=== PATIENT | female | born 1990 | race Two or more races ===

== ENCOUNTER 2024-02-05 10:56 | Emergency (ER) | payer MEDICAID, SELFPAY ==
--- NOTE | 2024-02-05 11:34 | XR_ITS ---
Examination: Abdomen AP 2 views Technique: AP portable supine abdomen, 2 views Exam date and time: February 05, 2024 1204 hours INDICATIONS: Unknown position gastrostomy tube today FINDINGS: Contrast opacifies the gastrostomy tube stomach and duodenum No abnormal extravasation of contrast noted IMPRESSION: Satisfactory position gastrostomy tube tip in the stomach
--- NOTE | 2024-02-05 11:35 | PD.EDADULT ---
ED General RME/HPI General Chief complaint: Abdominal Pain Stated complaint: G-TUBE LEAKING Time Seen by Provider: 02/05/24 11:02 Arrival date/time: 02/05/24 10:56 CC: G-tube failure HPI patient's family states that the G-tube has been leaking for the last several days it has been in for approximately 4 months. Patient is severely handicapped, requiring PEG tube feeds they deny fever or any other symptoms. Patient is awake Related Data Home Medications ?Medication ?Instructions ?Recorded ?Confirmed albuterol sulfate 2.5 mg/3 mL 2.5 mg HHN Q4HR PRN SHORTNESS OF 02/22/16 02/16/20 (0.083 %) solution for nebulization BREATH OR WHEEZE #0 ea budesonide 0.5 mg/2 mL suspension 0.5 mg HHN Q12HR #0 neb 02/22/16 02/16/20 for nebulization (Pulmicort) montelukast 10 mg tablet 10 mg PO QDAY #0 tabs 02/22/16 02/16/20 (Singulair) valproic acid (as sodium salt) 250 3 tsp PO TID ##0 02/22/16 02/16/20 mg/5 mL oral solution (valproic acid) lacosamide 100 mg tablet (Vimpat) 150 mg PO BID #0 tabs 02/04/17 02/16/20 levetiracetam 500 mg tablet 1,500 mg PO BID #0 tabs 02/04/17 02/16/20 (Keppra) lactulose 10 gram/15 mL oral 20 g PO BID 02/16/20 02/16/20 solution Previous Rx's ?Medication ?Instructions ?Recorded ondansetron HCl 4 mg tablet 4 mg feeding tube QID PRN nausea 04/12/18 (Zofran) and vomiting #14 tabs promethazine 25 mg tablet 25 mg feeding tube Q6H PRN nausea 04/12/18 and vomiting #10 tabs bacitracin 500 unit/gram topical 1 applic topical BID #30 grams 12/30/20 ointment doxycycline hyclate 100 mg capsule 100 mg PO BID #10 caps 12/30/20 Allergies Allergy/AdvReac Type Severity Reaction Status Date / Time brompheniramine Allergy Severe Difficulty Verified 10/03/23 10:43 [From Dimetapp Breathing (brompheniramine-PPA)] dextromethorphan Allergy Severe Difficulty Verified 10/03/23 10:43 Breathing guaifenesin Allergy Severe Difficulty Verified 10/03/23 10:43 Breathing hydrocodone bit Allergy Severe Dizziness Verified 10/03/23 10:43 latex Allergy Severe Dizziness Verified 10/03/23 10:43 metoclopramide [From Reglan] Allergy Severe Dizziness Verified 02/05/24 10:58 Penicillins Allergy Severe DIFF Verified 10/03/23 10:43 BREATHING phenylpropanolamine Allergy Severe Difficulty Verified 10/03/23 10:43 [From Dimetapp Breathing (brompheniramine-PPA)] pseudoephedrine Allergy Severe Difficulty Verified 10/03/23 10:43 Breathing Review of Systems Review of Systems ROS Unobtainable: unobtainable due to mental status Past Medical History Past Medical History NEUROLOGIC: Positive Seizures and Epilepsy; Negative Cerebrovascular Accident CARDIAC: Negative Cardiac Disorders, Myocardial Infarction, Hypercholesterolemia, Congestive Heart Failure or Hypertension RESPIRATORY: Positive Asthma and Pneumonia; Negative Chronic Obstructive Pulmonary Disease (COPD) GASTROINTESTINAL: Positive Gastroesophageal Reflux Disease; Negative Gastrointestinal Bleed or Hemorrhoids GENITOURINARY: Negative Genitourinary Disorders or Renal Disease ENDOCRINE: Negative Diabetes Mellitus Type 1, Diabetes Mellitus Type 2, Hyperthyroidism or Hypothyroidism HEMATOLOGIC: Negative Anemia or Sickle Cell Disease OTHER HISTORY: Positive Developmental Delay; Negative Autoimmune Disease or Cancer Family History FAMILY HISTORY: Positive Family Respiratory Disorders and Family Cardiac Disorders; Negative Family Psychiatric Problems, Family Gastrointestinal Problems, Family Cancer, Family Surgery or Family Anesthesia Reaction Surgical History SURGICAL: Positive Abdominal Surgery (g-tube placement) Social History SMOKING STATUS: Never smoker SECOND HAND EXPOSURE: No SUBSTANCE USE: does not use ED Exam Narrative Physical exam: [General: Not in any acute distress Head normocephalic HEENT: Within acceptable limits Neck is supple nontender Chest equal chest rise nontender to palpation Respiratory: Clear to auscultation no wheezes crackles or rubs CV: Rate rhythm is regular no murmurs rubs or clicks Abdomen is distended secondary to body habitus soft nontender no masses positive bowel sounds all 4 quadrants Back: No CVA tenderness no spinous process tenderness from cervical spine thoracic and lumbar spine Skin: G-tube stoma in the center upper abdomen clean dry and intact. Intact no petechiae rash induration ulceration or crepitus Extremities: Moving all extremity against resistance cap refill less than 2 seconds neurosensory intact Neuro: Awake baseline nonverbal Course Quality Measures none Orders Category Date Time Status XR abdomen 1V Stat Exams 02/05/24 11:34 Completed Procedures -ED Procedure Comment G-tube replacement old G-tube removed after difficulty and deflating the balloon due to a sticky valve. However all G-tube was removed without complication. New G-tube inserted after stomal site was cleaned, no resistance or complication gastric contents retracted. Patient tolerated the procedure well. [facility] Patient data External records reviewed:: [facility] previous records Clinical information provided by:: family and parent Social determinants that could affect healthcare access:: mental health Patient has the following chronic illnesses:: Developmental delay How is presenting disease/condition affected by chronic disease/condition?: uneffected by Evaluation data The following diagnostics were reviewed and interpreted by me:: radiology exam(s) Lab and/or radiology exams considered but not ordered:: X-ray shows a sufficient physician of the G-tube. Interpretation Summary: Successful replacement of G-tube Medications Medications considered but not ordered:: None Medication administrations:: None Consultations Consultation(s) initiated? (list below): No Diagnosis Differential Diagnosis ED Complaint MDM: G-tube failure stoma cellulitis stoma abscess Most likely diagnosis given after review of the tests above:: G-tube replacement Admission Indicated Admission indicated?: not indicated Explain why admission is indicated or not indicated:: Stable for outpatient follow-up Admission Request Was there a request for admission?: No Disposition Plan Disposition Plan: Discharge Discharge Attestation Discharge Attestation: The patient and all family members were given an opportunity to ask questions and understood the discharge instructions. Discharge instructions specifically effects, indications for sooner follow up or return to the emergency department, and the expected course of current diagnosis. Patient condition: Stable Medical Decision Making Differential Diagnosis Differential Diagnosis: G-tube failure stoma cellulitis stoma abscess Discharge Plan Plan Patient Disposition: HOME (Self Care) Patient condition on transfer: Stable Prescriptions/Referrals Prescriptions/Med Rec: No Action valproic acid (as sodium salt) [valproic acid] 250 MG/5 ML solution 3 tsp PO TID Qty: 0 montelukast [Singulair] 10 MG tablet 10 mg PO QDAY Qty: 0 albuterol sulfate 2.5 MG/3 ML solution for nebulization 2.5 mg HHN Q4HR PRN (Reason: SHORTNESS OF BREATH OR WHEEZE) Qty: 0 budesonide [Pulmicort] 0.5 MG/2 ML suspension for nebulization 0.5 mg HHN Q12HR Qty: 0 levetiracetam [Keppra] 500 MG tablet 1,500 mg PO BID Qty: 0 Vimpat 100 MG tablet 150 mg PO BID Qty: 0 promethazine 25 mg tablet 25 mg Feeding Tube Q6H PRN (Reason: nausea and vomiting) Qty: 10 0RF ondansetron HCl [Zofran] 4 mg tablet 4 mg Feeding Tube QID PRN (Reason: nausea and vomiting) Qty: 14 0RF bacitracin 500 unit/gram ointment 1 applic topical BID Qty: 30 4RF doxycycline hyclate 100 mg capsule 100 mg PO BID Qty: 10 0RF lactulose 10 gram/15 mL Solution 20 g PO BID Referrals: Dev Hernández MD [Primary Care Provider] - In 1 week Problem List Clinical Impression: Impaired oral gastric feeding tube Patient/Caregiver Discharge Instructions Other Activity Instructions:: Keep the site clean and dry Print Language: Maori Stand Alone Forms: Leandra Award Info., Patient Portal Info Letter PA/FAST FOOD RESTAURANT MANAGER Supervising Physician PA/FAST FOOD RESTAURANT MANAGER Supervising Physician: Lauro Hernandez ENP
== END 2024-02-05 12:39 | disposition home or self-care (01) ==
PROVIDERS: Emergency Provider Emergency Medicine; PCP Family Medicine
DX: K94.23 Gastrostomy malfunction (principal)
CPT/HCPCS: 43762; 74018; 99283; Q9963

== ENCOUNTER 2024-06-03 00:34 | Emergency (ER) | payer MEDICAID, SELFPAY ==
--- NOTE | 2024-06-03 00:39 | XR_ITS ---
Examination: Abdomen AP single view Technique: AP portable supine abdomen, single view Exam date and time: June 03, 2024 0055 hours INDICATIONS: Unknown position gastrostomy tube FINDINGS: Gastrostomy tube overlies the body the stomach No free air Nonobstructive bowel gas pattern IMPRESSION: Gastrostomy tube overlies the body the stomach
[2024-06-03 00:46] VITALS: BP 121/67; PULSE 102; PULSE 99; RESP 19; TEMP 36.7; O2SAT 99; BMI 21.4
--- NOTE | 2024-06-03 01:13 | PD.EDABDPN ---
ED Abdominal Pain RME/HPI General Chief Complaint: Abdominal Pain Stated complaint: G-TUBE REMOVED Time seen by provider: 06/03/24 00:38 Arrival date/time: 06/03/24 00:34 RME / HPI RME / HPI narrative: This section includes all my notes and documentations, including HPI, PE, and ED course.? Louie Awan MD HPI: 34 year old female here with dislodged G-tube. Mom brought new G-tube for replacement. No other complaints. ROS: All negative except as documented in HPI. Physical Exam: General:? Alert.? No acute distress when remaining still. Eyes:? Conjunctivae and lids clear.?? ENT:? No nasal congestion.? Neck:? Supple.?? Lungs:? No respiratory distress.? Abdomen:? Soft and nontender.? Normal bowel sounds.? No distension.? No rebound or guarding.?? Back:? No CVA tenderness.?? Skin:? Warm and dry.?? Neuro:? Alert with GCS 15. I reviewed EMS notes. New G-tube successfully inserted with no complications. My interpretation of the KUB is no acute findings. Based on my best medical judgment, made decision no further evaluation or treatment indicated at this time.? Mom understands and agrees to the discharge instructions customized and printed, see below. Discharge Instructions from Dr. Awan printed for you: 1. Fortunately, we were able to G-tube successfully thanks to your help. 2. Continue current care. 3. Seek immediate medical care with any concerns. Louie Awan MD Related Data Home Medications ?Medication ?Instructions ?Recorded ?Confirmed albuterol sulfate 2.5 mg/3 mL 2.5 mg HHN Q4HR PRN SHORTNESS OF 02/22/16 02/16/20 (0.083 %) solution for nebulization BREATH OR WHEEZE #0 ea budesonide 0.5 mg/2 mL suspension 0.5 mg HHN Q12HR #0 neb 02/22/16 02/16/20 for nebulization (Pulmicort) montelukast 10 mg tablet 10 mg PO QDAY #0 tabs 02/22/16 02/16/20 (Singulair) valproic acid (as sodium salt) 250 3 tsp PO TID ##0 02/22/16 02/16/20 mg/5 mL oral solution (valproic acid) lacosamide 100 mg tablet (Vimpat) 150 mg PO BID #0 tabs 02/04/17 02/16/20 levetiracetam 500 mg tablet 1,500 mg PO BID #0 tabs 02/04/17 02/16/20 (Keppra) lactulose 10 gram/15 mL oral 20 g PO BID 02/16/20 02/16/20 solution Previous Rx's ?Medication ?Instructions ?Recorded ondansetron HCl 4 mg tablet 4 mg feeding tube QID PRN nausea 04/12/18 (Zofran) and vomiting #14 tabs promethazine 25 mg tablet 25 mg feeding tube Q6H PRN nausea 04/12/18 and vomiting #10 tabs bacitracin 500 unit/gram topical 1 applic topical BID #30 grams 12/30/20 ointment doxycycline hyclate 100 mg capsule 100 mg PO BID #10 caps 12/30/20 Allergies Allergy/AdvReac Type Severity Reaction Status Date / Time brompheniramine (From Allergy Severe Difficulty Verified 10/03/23 10:43 Dimetapp Breathing (brompheniramine-PPA)) dextromethorphan Allergy Severe Difficulty Verified 10/03/23 10:43 Breathing guaifenesin Allergy Severe Difficulty Verified 10/03/23 10:43 Breathing hydrocodone bit Allergy Severe Dizziness Verified 10/03/23 10:43 latex Allergy Severe Dizziness Verified 10/03/23 10:43 metoclopramide (From Reglan) Allergy Severe Dizziness Verified 02/05/24 10:58 Penicillins Allergy Severe DIFF Verified 10/03/23 10:43 BREATHING phenylpropanolamine (From Allergy Severe Difficulty Verified 10/03/23 10:43 Dimetapp Breathing (brompheniramine-PPA)) pseudoephedrine Allergy Severe Difficulty Verified 10/03/23 10:43 Breathing Course Quality Measures none Orders Category Date Time Status KUB [XR abdomen 1V] Stat Exams 06/03/24 00:39 Completed Vital Signs Vital signs: Vital Signs Temperature 98.1 F 06/03/24 00:46 Pulse Rate 99 06/03/24 00:46 Respiratory Rate 19 06/03/24 00:46 Blood Pressure 121/67 06/03/24 00:46 Pulse Oximetry (%) 99 06/03/24 00:46 Oxygen Delivery Method Room Air 06/03/24 00:46 Abdominal Pain MDM Patient data External records reviewed:: [facility] previous records and EMS form Clinical information provided by:: EMS and parent Social determinants that could affect healthcare access:: other (specify) (Developmental delay) Patient has the following chronic illnesses:: Developmental delay, G-tube, Seizure How is presenting disease/condition affected by chronic disease/condition?: exacerbated by Evaluation data The following diagnostics were reviewed and interpreted by me:: radiology exam(s) Lab and/or radiology exams considered but not ordered:: none Interpretation Summary: My interpretation of the KUB is no acute findings. Medications / Prescriptions Medications or Prescriptions considered but not ordered:: none Medication administrations:: none Consultations Consultation(s) initiated? (list below): No Diagnosis Differential diagnosis abdominal pain: other (Dislodged G-tube) Most likely diagnosis given after review of the tests above:: Dislodged G-tube Admission Indicated Admission indicated?: not indicated Explain why admission is indicated or not indicated:: Admission not indicated after successful new G-tube insertion. Admission Request Was there a request for admission?: No Disposition Plan Disposition Plan: Discharge Discharge Attestation Discharge Attestation: The patient and all family members were given an opportunity to ask questions and understood the discharge instructions. Discharge instructions specifically effects, indications for sooner follow up or return to the emergency department, and the expected course of current diagnosis. Patient condition: Stable Discharge Plan Plan Patient Disposition: HOME (Self Care) Prescriptions/Referrals Prescriptions/Med Rec: No Action valproic acid (as sodium salt) [valproic acid] 250 MG/5 ML solution 3 tsp PO TID Qty: 0 montelukast [Singulair] 10 MG tablet 10 mg PO QDAY Qty: 0 albuterol sulfate 2.5 MG/3 ML solution for nebulization 2.5 mg HHN Q4HR PRN (Reason: SHORTNESS OF BREATH OR WHEEZE) Qty: 0 budesonide [Pulmicort] 0.5 MG/2 ML suspension for nebulization 0.5 mg HHN Q12HR Qty: 0 levetiracetam [Keppra] 500 MG tablet 1,500 mg PO BID Qty: 0 Vimpat 100 MG tablet 150 mg PO BID Qty: 0 promethazine 25 mg tablet 25 mg Feeding Tube Q6H PRN (Reason: nausea and vomiting) Qty: 10 0RF ondansetron HCl [Zofran] 4 mg tablet 4 mg Feeding Tube QID PRN (Reason: nausea and vomiting) Qty: 14 0RF bacitracin 500 unit/gram ointment 1 applic topical BID Qty: 30 4RF doxycycline hyclate 100 mg capsule 100 mg PO BID Qty: 10 0RF lactulose 10 gram/15 mL Solution 20 g PO BID Referrals: Dev Hernández MD [Primary Care Provider] - In 1 week Problem List Clinical Impression: Gastrostomy tube dysfunction Patient/Caregiver Discharge Instructions Discharge Activity: activity as tolerated Education Materials: ED Feeding Tube Replacement Additional Instructions: Discharge Instructions from Dr. Awan printed for you: 1. Fortunately, we were able to G-tube successfully thanks to your help. 2. Continue current care. 3. Seek immediate medical care with any concerns. Print Language: Wolof Stand Alone Forms: Leandra Award Info., Patient Portal Info Letter
== END 2024-06-03 01:27 | disposition home or self-care (01) ==
PROVIDERS: Emergency Provider Emergency Medicine; PCP Family Medicine
DX: K94.23 Gastrostomy malfunction (principal)
CPT/HCPCS: 43762; 74018; 99283

== ENCOUNTER 2024-09-02 10:43 | Emergency (ER) | payer MEDICAID, SELFPAY ==
[2024-09-02 11:00] VITALS: BP 115/77; PULSE 96; RESP 18; TEMP 37.2; O2SAT 98
--- NOTE | 2024-09-02 11:05 | PD.EDADULT ---
ED General RME/HPI General Chief complaint: General Adult/Misc Complain Stated complaint: GT LEAKING Time Seen by Provider: 09/02/24 10:52 Source: patient Arrival date/time: 09/02/24 10:43 34-year-old female with no known medical history presents to the emergency room with a chief complaint of her G-tube leaking x 2 days Mode of arrival: ambulatory Limitations: no limitations Related Data Home Medications ?Medication ?Instructions ?Recorded ?Confirmed albuterol sulfate 2.5 mg/3 mL 2.5 mg HHN Q4HR PRN SHORTNESS OF 02/22/16 02/16/20 (0.083 %) solution for nebulization BREATH OR WHEEZE #0 ea budesonide 0.5 mg/2 mL suspension 0.5 mg HHN Q12HR #0 neb 02/22/16 02/16/20 for nebulization (Pulmicort) montelukast 10 mg tablet 10 mg PO QDAY #0 tabs 02/22/16 02/16/20 (Singulair) valproic acid (as sodium salt) 250 3 tsp PO TID ##0 02/22/16 02/16/20 mg/5 mL oral solution (valproic acid) lacosamide 100 mg tablet (Vimpat) 150 mg PO BID #0 tabs 02/04/17 02/16/20 levetiracetam 500 mg tablet 1,500 mg PO BID #0 tabs 02/04/17 02/16/20 (Keppra) lactulose 10 gram/15 mL oral 20 g PO BID 02/16/20 02/16/20 solution Previous Rx's ?Medication ?Instructions ?Recorded ondansetron HCl 4 mg tablet 4 mg feeding tube QID PRN nausea 04/12/18 (Zofran) and vomiting #14 tabs promethazine 25 mg tablet 25 mg feeding tube Q6H PRN nausea 04/12/18 and vomiting #10 tabs bacitracin 500 unit/gram topical 1 applic topical BID #30 grams 12/30/20 ointment doxycycline hyclate 100 mg capsule 100 mg PO BID #10 caps 12/30/20 Allergies Allergy/AdvReac Type Severity Reaction Status Date / Time brompheniramine (From Allergy Severe Difficulty Verified 09/02/24 10:46 Dimetapp Breathing (brompheniramine-PPA)) dextromethorphan Allergy Severe Difficulty Verified 09/02/24 10:46 Breathing guaifenesin Allergy Severe Difficulty Verified 09/02/24 10:46 Breathing hydrocodone bit Allergy Severe Dizziness Verified 09/02/24 10:46 latex Allergy Severe Dizziness Verified 09/02/24 10:46 metoclopramide (From Reglan) Allergy Severe Dizziness Verified 09/02/24 10:46 Penicillins Allergy Severe DIFF Verified 09/02/24 10:46 BREATHING phenylpropanolamine (From Allergy Severe Difficulty Verified 09/02/24 10:46 Dimetapp Breathing (brompheniramine-PPA)) pseudoephedrine Allergy Severe Difficulty Verified 09/02/24 10:46 Breathing Review of Systems Review of Systems Systems Reviewed: All systems reviewed, normal except as documented Constitutional Constitutional: Reports system reviewed and no additional complaints, except as documented, Denies fatigue, Denies fever(s), Denies headache(s) and Denies weakness Eyes Eyes: Reports system reviewed and no additional complaints, except as documented, Denies blurry vision and Denies change in vision ENT Ears, Nose, Mouth, and Throat: Reports system reviewed and no additional complaints, except as documented, Denies otalgia, Denies headache(s), Denies nasal congestion, Denies throat swelling and Denies vertigo Cardiovascular Cardiovascular: Reports system reviewed and no additional complaints, except as documented, Denies chest pain, Denies dyspnea and Denies dyspnea on exertion Respiratory Respiratory: Reports system reviewed and no additional complaints, except as documented, Denies chest congestion, Denies cough, Denies dyspnea, Denies dyspnea on exertion and Denies wheezing Gastrointestinal Gastrointestinal: Reports system reviewed and no additional complaints, except as documented, Denies abdominal pain, Denies cramping, Denies nausea and Denies vomiting Genitourinary Genitourinary: Reports system reviewed and no additional complaints, except as documented Musculoskeletal Musculoskeletal: Reports system reviewed and no additional complaints, except as documented and Denies back pain Integumentary/Breasts Skin/Breast: Reports system reviewed and no additional complaints, except as documented and Denies wounds Neurologic Neurologic: Reports system reviewed and no additional complaints, except as documented, Denies confusion, Denies headache(s), Denies lack of coordination, Denies vertigo and Denies weakness Psychiatric Psychiatric: Reports system reviewed and no additional complaints, except as documented, Denies anxiety, Denies confusion, Denies depression, Denies paranoia, Denies suicidal ideation and Denies tactile hallucinations Endocrine Endocrine: Reports system reviewed and no additional complaints, except as documented and Denies fatigue Hematologic/Lymphatic Hematologic/Lymphatic: Reports system reviewed and no additional complaints, except as documented and Denies lymphadenopathy Allergic/Immunologic Allergic/Immunologic: Reports system reviewed and no additional complaints, except as documented, Denies throat swelling, Denies urticaria and Denies wheezing Past Medical History Past Medical History NEUROLOGIC: Positive Seizures and Epilepsy; Negative Cerebrovascular Accident CARDIAC: Negative Cardiac Disorders, Myocardial Infarction, Hypercholesterolemia, Congestive Heart Failure or Hypertension RESPIRATORY: Positive Asthma and Pneumonia; Negative Chronic Obstructive Pulmonary Disease (COPD) GASTROINTESTINAL: Positive Gastroesophageal Reflux Disease; Negative Gastrointestinal Bleed or Hemorrhoids GENITOURINARY: Negative Genitourinary Disorders or Renal Disease ENDOCRINE: Negative Diabetes Mellitus Type 1, Diabetes Mellitus Type 2, Hyperthyroidism or Hypothyroidism HEMATOLOGIC: Negative Anemia or Sickle Cell Disease OTHER HISTORY: Positive Developmental Delay; Negative Autoimmune Disease or Cancer Family History FAMILY HISTORY: Positive Family Respiratory Disorders and Family Cardiac Disorders; Negative Family Psychiatric Problems, Family Gastrointestinal Problems, Family Cancer, Family Surgery or Family Anesthesia Reaction Surgical History SURGICAL: Positive Abdominal Surgery Social History SMOKING STATUS: Never smoker SECOND HAND EXPOSURE: No SUBSTANCE USE: does not use ED Exam General Limitations: Present no limitations General appearance: Present alert and in no apparent distress Head Head exam: Present atraumatic Eye Eye exam: Present normal appearance, PERRL and EOMI ENT ENT exam: Present normal exam, normal oropharynx and mucous membranes moist Neck Neck exam: Present normal inspection, full ROM and trachea midline Chest Chest inspection: Present normal inspection and symmetric chest wall rise Respiratory Respiratory exam: Present normal lung sounds bilaterally Cardiovascular Cardiovascular exam: Present regular rate, normal rhythm and normal heart sounds Abdominal Exam Abdominal exam: Present soft and normal bowel sounds; Absent distention, tenderness, guarding, rebound or rigidity Extremities Exam Extremities exam: Present normal inspection and full ROM Back Exam Back exam: Present normal inspection and full ROM Neurological Exam Neurological exam: Present alert, oriented X3 and CN II-XII intact Psychiatric Psychiatric exam: Present normal affect and normal mood Skin Skin exam: Present warm, dry, intact and normal color Course Quality Measures none Orders Category Date Time Status XR abdomen 1V Stat Exams 09/02/24 11:22 Completed Vital Signs Vital signs: Vital Signs Temperature 98.9 F 09/02/24 11:00 Pulse Rate 96 07/21/25 11:00 Respiratory Rate 18 09/02/24 11:00 Blood Pressure 115/77 09/02/24 11:00 Pulse Oximetry (%) 98 09/02/24 11:00 Oxygen Delivery Method Room Air 09/02/24 11:00 Discharge Plan Plan Patient Disposition: HOME (Self Care) Discharge Disposition comment: Stable Prescriptions/Referrals Prescriptions/Med Rec: No Action valproic acid (as sodium salt) [valproic acid] 250 MG/5 ML solution 3 tsp PO TID Qty: 0 montelukast [Singulair] 10 MG tablet 10 mg PO QDAY Qty: 0 albuterol sulfate 2.5 MG/3 ML solution for nebulization 2.5 mg HHN Q4HR PRN (Reason: SHORTNESS OF BREATH OR WHEEZE) Qty: 0 budesonide [Pulmicort] 0.5 MG/2 ML suspension for nebulization 0.5 mg HHN Q12HR Qty: 0 levetiracetam [Keppra] 500 MG tablet 1,500 mg PO BID Qty: 0 Vimpat 100 MG tablet 150 mg PO BID Qty: 0 promethazine 25 mg tablet 25 mg Feeding Tube Q6H PRN (Reason: nausea and vomiting) Qty: 10 0RF ondansetron HCl [Zofran] 4 mg tablet 4 mg Feeding Tube QID PRN (Reason: nausea and vomiting) Qty: 14 0RF bacitracin 500 unit/gram ointment 1 applic topical BID Qty: 30 4RF doxycycline hyclate 100 mg capsule 100 mg PO BID Qty: 10 0RF lactulose 10 gram/15 mL Solution 20 g PO BID Referrals: No Primary/Family,Physician [Primary Care Provider] - In 1 week Problem List Clinical Impression: Gastrostomy tube dysfunction Patient/Caregiver Discharge Instructions Additional Instructions: Please follow-up with your primary care provider in the next 24 to 48 hours Your G-tube was replaced. For any evidence of worsening signs or symptoms return to the emergency room immediately Print Language: Guamanian Stand Alone Forms: Leandra Award Info., Patient Portal Info Letter PA/ELECTRIC KNIFE OPERATOR Supervising Physician PA/ELECTRIC KNIFE OPERATOR Supervising Physician: Dr. Josiah LOU Narrative MDM hospital course: 34-year-old female with a history of developmental delay presents to the emergency room with a chief complaint of her G-tube leaking x 2 days Patient is hemodynamically stable and in no apparent distress. The patient is afebrile not tachycardic not tachypneic. The patient has a history of developmentally delayed. According to both of her parents the patient is not in any pain or any any distress and the only reason they brought her in was due to the G-tube leaking. The father states that the last time that the G-tube was replaced was 3 months ago. I removed the G-tube and replaced with one that measures exactly the same. An x-ray was then done to verify placement and the placement within satisfactory position Patient was discharged and educated to follow-up with primary care provider in the next 24 to 48 hours and return to the emergency room for any evidence of worsening signs or symptoms Clinical Information Provided by parent Medical Records Reviewed [facility] Meds/Rx Considered, not Ordered None Labs/Rad/Tests considered, not Ordered None Chronic Illness/Social Conditions which may negatively complicate care or outcome(s)-explain: None or not applicable EKG EKG not done Lab Interpretation Labs: none Imaging Imaging interpretation: interpreted by nd Radiology reports / interpretation(s): Abdominal p-nmi-I-tube in satisfactory position Medication Administration(s) none Diagnosis Differential diagnosis: G-tube dysfunction/infected G-tube Differential dx and/or dx ruled out: Infected G-tube Most likely dx, and/or detailed dx discussion: G-tube dysfunction Dispositon Disposition: Discharge Home
--- NOTE | 2024-09-02 11:22 | XR_ITS ---
Examination: Abdomen AP single view Technique: AP portable supine abdomen, single view Exam date and time: September 02, 2024, 1155 hours INDICATIONS: Unknown position gastrostomy tube FINDINGS: There is opacification of gastrostomy tube, contrast in the stomach and small bowel No leak of contrast material noted IMPRESSION: Satisfactory position gastrostomy tube in the body the stomach
== END 2024-09-02 12:40 | disposition home or self-care (01) ==
PROVIDERS: Emergency Provider Nurse Practitioner Family
DX: K94.23 Gastrostomy malfunction (principal)
CPT/HCPCS: 74018; 99283

== ENCOUNTER 2024-11-04 00:07 | Emergency (ER) | payer MEDICAID, SELFPAY ==
[2024-11-04 00:24] VITALS: BP 119/67; PULSE 79; RESP 20; TEMP 36.7; O2SAT 97
--- NOTE | 2024-11-04 00:29 | ESOP_ITS ---
PROCEDURES: Procedure Date / Time 11/04/24 0029 Feeding Tube Replacement Informed consent obtained: obtained from surrogate decision maker and implied Time out done, and the following verified: correct patient, side and site, procedure, patient position and implants and/or equipment Type of tube: G-J Tube Insertion site prior to procedure: clean Tube used for reinsertion: Bard Citizen [place] Tube Size (F): 20 Balloon size (mL): 10 Verification of placement: auscultation and other (Aspiration of gastric contents) Tube secured by: tape/dressing Patient tolerated procedure: well and no complications EBL(ml): 0 Additional comments: Performed under supervision of Attending ED Physician Dr. Emperatriz Diaz MD Internal Medicine PGY-2 Disclaimer: This note was dictated by speech recognition. Minor errors in food and beverage associate may be present due to voice recognition software.
--- NOTE | 2024-11-04 00:30 | PD.EDADULT ---
ED General RME/HPI General Chief complaint: General Adult/Misc Complain Stated complaint: GT CAME OUT Time Seen by Provider: 11/04/24 00:13 Source: family Arrival date/time: 11/04/24 00:07 Mode of arrival: wheelchair RME / HPI RME / HPI narrative: Ms. Perkins is a 34-year-old female with past medical history of developmental delay, seizure disorder, status post PEG tube and asthma who presented to [facility] emergency department on 11/04/2024 with a chief complaint of PEG tube dislodgment. Patient's mother complained that earlier today when she was about to give her her night dose of medications she noticed that the PEG tube was dislodged and outside the orifice., No tenderness or redness noted around the site. No other complaints, vital stable. Related Data Home Medications ?Medication ?Instructions ?Recorded ?Confirmed albuterol sulfate 2.5 mg/3 mL 2.5 mg HHN Q4HR PRN SHORTNESS OF 02/22/16 02/16/20 (0.083 %) solution for nebulization BREATH OR WHEEZE #0 ea budesonide 0.5 mg/2 mL suspension 0.5 mg HHN Q12HR #0 neb 02/22/16 02/16/20 for nebulization (Pulmicort) montelukast 10 mg tablet 10 mg PO QDAY #0 tabs 02/22/16 02/16/20 (Singulair) valproic acid (as sodium salt) 250 3 tsp PO TID ##0 02/22/16 02/16/20 mg/5 mL oral solution (valproic acid) lacosamide 100 mg tablet (Vimpat) 150 mg PO BID #0 tabs 02/04/17 02/16/20 levetiracetam 500 mg tablet 1,500 mg PO BID #0 tabs 02/04/17 02/16/20 (Keppra) lactulose 10 gram/15 mL oral 20 g PO BID 02/16/20 02/16/20 solution Previous Rx's ?Medication ?Instructions ?Recorded ondansetron HCl 4 mg tablet 4 mg feeding tube QID PRN nausea 04/12/18 (Zofran) and vomiting #14 tabs promethazine 25 mg tablet 25 mg feeding tube Q6H PRN nausea 04/12/18 and vomiting #10 tabs bacitracin 500 unit/gram topical 1 applic topical BID #30 grams 12/30/20 ointment doxycycline hyclate 100 mg capsule 100 mg PO BID #10 caps 12/30/20 Allergies Allergy/AdvReac Type Severity Reaction Status Date / Time brompheniramine (From Allergy Severe Difficulty Verified 09/02/24 10:46 Dimetapp Breathing (brompheniramine-PPA)) dextromethorphan Allergy Severe Difficulty Verified 09/02/24 10:46 Breathing guaifenesin Allergy Severe Difficulty Verified 09/02/24 10:46 Breathing hydrocodone bit Allergy Severe Dizziness Verified 09/02/24 10:46 latex Allergy Severe Dizziness Verified 09/02/24 10:46 metoclopramide (From Reglan) Allergy Severe Dizziness Verified 09/02/24 10:46 Penicillins Allergy Severe DIFF Verified 09/02/24 10:46 BREATHING phenylpropanolamine (From Allergy Severe Difficulty Verified 09/02/24 10:46 Dimetapp Breathing (brompheniramine-PPA)) pseudoephedrine Allergy Severe Difficulty Verified 09/02/24 10:46 Breathing Review of Systems Review of Systems Systems Reviewed: All systems reviewed, normal except as documented Past Medical History Past Medical History NEUROLOGIC: Positive Seizures and Epilepsy; Negative Cerebrovascular Accident CARDIAC: Negative Cardiac Disorders, Myocardial Infarction, Hypercholesterolemia, Congestive Heart Failure or Hypertension RESPIRATORY: Positive Asthma; Negative Chronic Obstructive Pulmonary Disease (COPD) GASTROINTESTINAL: Positive Gastroesophageal Reflux Disease; Negative Gastrointestinal Bleed or Hemorrhoids GENITOURINARY: Negative Genitourinary Disorders or Renal Disease ENDOCRINE: Negative Diabetes Mellitus Type 1, Diabetes Mellitus Type 2, Hyperthyroidism or Hypothyroidism HEMATOLOGIC: Negative Anemia or Sickle Cell Disease OTHER HISTORY: Positive Developmental Delay; Negative Autoimmune Disease or Cancer Family History FAMILY HISTORY: Positive Family Respiratory Disorders and Family Cardiac Disorders; Negative Family Psychiatric Problems, Family Gastrointestinal Problems, Family Cancer, Family Surgery or Family Anesthesia Reaction Surgical History SURGICAL: Positive Abdominal Surgery Social History SMOKING STATUS: Never smoker SECOND HAND EXPOSURE: No SUBSTANCE USE: does not use ED Exam Narrative Physical exam: Physical Exam General: Awake and in no acute distress. Nonverbal. HEENT: Normocephalic, atraumatic, mucous membranes moist. Heart: Regular rate and rhythm, no murmurs. Lungs: Clear to auscultation with no wheezing or crackles. Abdomen: Soft, nondistended, nontender, positive bowel sounds. Old PEG tube within orifice, no tenderness redness noted around site.?No guarding or rebound tenderness. Neurologic: At baseline mentation per mother, no gross neurological deficit, and patient able to move all 4 extremities. Extremities: No edema. Skin: No rash or ecchymoses. Course Quality Measures none Vital Signs Vital signs: Vital Signs Temperature 98.0 F 11/04/24 00:24 Pulse Rate 79 11/04/24 00:24 Respiratory Rate 20 11/04/24 00:24 Blood Pressure 119/67 11/04/24 00:24 Pulse Oximetry (%) 97 11/04/24 00:24 Oxygen Delivery Method Room Air 11/04/24 00:24 PROCEDURES: Feeding Tube Replacement Type of Tube: G-J Tube Insertion Site Prior to Procedure: clean Tube Used for Reinsertion: Bard [place] Tube Size (F): 20 Balloon size (mL): 10 Verification of Placement: auscultation and other (Aspiration of gastric contents) Tube Secured by: tape/dressing Patient Tolerated Procedure: well and no complications Additional Comments: Procedure performed under supervision of ED physician Dr. Emperatriz Diaz MD Internal Medicine PGY-2 Discharge Plan Plan Patient Disposition: HOME (Self Care) Patient condition on transfer: Stable Prescriptions/Referrals Prescriptions/Med Rec: No Action valproic acid (as sodium salt) [valproic acid] 250 MG/5 ML solution 3 tsp PO TID Qty: 0 montelukast [Singulair] 10 MG tablet 10 mg PO QDAY Qty: 0 albuterol sulfate 2.5 MG/3 ML solution for nebulization 2.5 mg HHN Q4HR PRN (Reason: SHORTNESS OF BREATH OR WHEEZE) Qty: 0 budesonide [Pulmicort] 0.5 MG/2 ML suspension for nebulization 0.5 mg HHN Q12HR Qty: 0 levetiracetam [Keppra] 500 MG tablet 1,500 mg PO BID Qty: 0 Vimpat 100 MG tablet 150 mg PO BID Qty: 0 promethazine 25 mg tablet 25 mg Feeding Tube Q6H PRN (Reason: nausea and vomiting) Qty: 10 0RF ondansetron HCl [Zofran] 4 mg tablet 4 mg Feeding Tube QID PRN (Reason: nausea and vomiting) Qty: 14 0RF bacitracin 500 unit/gram ointment 1 applic topical BID Qty: 30 4RF doxycycline hyclate 100 mg capsule 100 mg PO BID Qty: 10 0RF lactulose 10 gram/15 mL Solution 20 g PO BID Problem List Clinical Impression: Malfunction of gastrostomy tube Patient/Caregiver Discharge Instructions Discharge Activity: activity as tolerated Education Materials: ED Feeding Tube Replacement Additional Instructions: - You were seen in the emergency department today because of G-tube malfunction, we replaced your gastric tube with a new G-tube, there was good aspiration of gastric contents. The G-tube is ready to be used. - Please return to the emergency department if there is any concerns with the G-tube - Follow-up with your primary care physician within 1 week Print Language: Tamazight Stand Alone Forms: Leandra Award Info., Patient Portal Info Letter MDM Narrative MDM hospital course (for use when minimal MDM required): #PEG tube dislodgment 34-year-old female with past medical history as above presented with PEG tube dislodgment. New PEG tube inserted in the orifice, 20 [place] Bard, gastric contents aspirated. Patient tolerated procedure well no complications No other concerns currently Patient is stable for discharge. Case discussed with Attending Physician Dr. Emperatriz Diaz MD Internal Medicine PGY-2 Disclaimer: This note was dictated by speech recognition. Minor errors in shredder tender peat may be present due to voice recognition software. Clinical Information Provided by: parent Medical Records reviewed [facility] Meds/Rx considered, not ordered None Labs/Rad/Tests considered, not ordered None Chronic Illness/Social Conditions which may negatively complicate care or outcome(s)-explain: None or not applicable EKG EKG not done Labs Labs: none Imaging Imaging interpretation: none Medication Administration(s) none Diagnosis Differential Diagnosis ED Complaint MDM: PEG tube dislodgment, PEG tube dysfunction
== END 2024-11-04 00:48 | disposition home or self-care (01) ==
PROVIDERS: Emergency Provider Emergency Medicine; PCP Family Medicine
DX: K94.23 Gastrostomy malfunction (principal); J45.909 Unspecified asthma, uncomplicated; G40.909 Epilepsy, unspecified, not intractable, without status epilepticus; Z88.0 Allergy status to penicillin; Z88.5 Allergy status to narcotic agent; Z88.8 Allergy status to other drugs, medicaments and biological substances; Z91.040 Latex allergy status; Y83.3 Surgical operation with formation of external stoma as the cause of abnormal reaction of the patient, or of later complication, without mention of misadventure at the time of the procedure
CPT/HCPCS: 43762; 99281

== ENCOUNTER 2025-01-03 12:32 | Emergency (ER) | payer MEDICAID, SELFPAY ==
[2025-01-03 12:51] VITALS: BP 126/86; PULSE 84; RESP 18; TEMP 36.8; O2SAT 98
--- NOTE | 2025-01-03 12:52 | XR_ITS ---
Examination: Abdomen AP single view Technique: AP portable supine abdomen, single view Exam date and time: January 03, 2025, 1319 hours INDICATIONS: Unknown position gastrostomy tube FINDINGS: Gastrostomy tube in the stomach satisfactory position, opacification of the stomach, no abnormal extravasation IMPRESSION: Gastrostomy tube in the stomach satisfactory position
--- NOTE | 2025-01-03 12:53 | PD.EDADULT ---
ED General RME/HPI General Chief complaint: General Adult/Misc Complain Stated complaint: G-TUBE LEAKING Time Seen by Provider: 01/03/25 12:43 Arrival date/time: 01/03/25 12:32 34-year-old female patient was brought in by family for evaluation regarding issues with G-tube. According to the family the G-tube is leaking for the last few days. It was last changed 3 months ago. Patient is NPO. Patient has significant history of mental retardation, seizure disorder, nonverbal, and nonambulatory. No other complaints noted. Related Data Home Medications ?Medication ?Instructions ?Recorded ?Confirmed albuterol sulfate 2.5 mg/3 mL 2.5 mg HHN Q4HR PRN SHORTNESS OF 02/22/16 02/16/20 (0.083 %) solution for nebulization BREATH OR WHEEZE #0 ea budesonide 0.5 mg/2 mL suspension 0.5 mg HHN Q12HR #0 neb 02/22/16 02/16/20 for nebulization (Pulmicort) montelukast 10 mg tablet 10 mg PO QDAY #0 tabs 02/22/16 02/16/20 (Singulair) valproic acid (as sodium salt) 250 3 tsp PO TID ##0 02/22/16 02/16/20 mg/5 mL oral solution (valproic acid) lacosamide 100 mg tablet (Vimpat) 150 mg PO BID #0 tabs 02/04/17 02/16/20 levetiracetam 500 mg tablet 1,500 mg PO BID #0 tabs 02/04/17 02/16/20 (Keppra) lactulose 10 gram/15 mL oral 20 g PO BID 02/16/20 02/16/20 solution Previous Rx's ?Medication ?Instructions ?Recorded ondansetron HCl 4 mg tablet 4 mg feeding tube QID PRN nausea 04/12/18 (Zofran) and vomiting #14 tabs promethazine 25 mg tablet 25 mg feeding tube Q6H PRN nausea 04/12/18 and vomiting #10 tabs bacitracin 500 unit/gram topical 1 applic topical BID #30 grams 12/30/20 ointment doxycycline hyclate 100 mg capsule 100 mg PO BID #10 caps 12/30/20 Allergies Allergy/AdvReac Type Severity Reaction Status Date / Time brompheniramine (From Allergy Severe Difficulty Verified 01/03/25 12:34 Dimetapp Breathing (brompheniramine-PPA)) dextromethorphan Allergy Severe Difficulty Verified 01/03/25 12:34 Breathing guaifenesin Allergy Severe Difficulty Verified 01/03/25 12:34 Breathing hydrocodone bit Allergy Severe Dizziness Verified 01/03/25 12:34 latex Allergy Severe Dizziness Verified 01/03/25 12:34 metoclopramide (From Reglan) Allergy Severe Dizziness Verified 01/03/25 12:34 Penicillins Allergy Severe DIFF Verified 01/03/25 12:34 BREATHING phenylpropanolamine (From Allergy Severe Difficulty Verified 01/03/25 12:34 Dimetapp Breathing (brompheniramine-PPA)) pseudoephedrine Allergy Severe Difficulty Verified 01/03/25 12:34 Breathing Review of Systems Review of Systems Narrative Review of Systems: Review of system reviewed and within normal limits except mentioned in HPI ED Exam Narrative Physical exam: VITAL SIGNS: Reviewed. GENERAL APPEARANCE: Alert and good eye contact does not follows commands, no acute distress, HEAD AND FACE: Non-traumatic. ENT: PERRL, pink conjunctivitis, eyelid no trauma, Mucous membrane moist. NECK: Supple, nontender, no nuchal rigidity. CHEST: No tenderness, no crepitus, no paradoxical movement, no retractions. LUNGS: Clear, well ventilated, symmetric, no rales, no wheezing, no ronchi, no stridor, good breath sounds bilaterally. HEART: Regular rate, regular rhythm, no murmur, no gallops. ABDOMEN: Soft, positive bowel sounds, nondistended, no guarding, nontender, no rebound, no masses, G-tube intact however leaking no redness noted at the insertion site no pus coming out RECTAL: Deferred. GENITAL: Deferred. NEUROLOGICAL: Gross motor function intact sensory function intact, Appropriate for age. MUSCULOSKELETAL: low back nontender, limited range of motion. EXTREMITIES: Nontender, full range of motion. SKIN: Color pink, dry, no rash, no lacerations, no abrasions, no contusions. LYMPHATICS: Deferred. Course Quality Measures none Orders Category Date Time Status XR abdomen 1V Stat Exams 01/03/25 12:52 Completed Vital Signs Vital signs: Vital Signs Temperature 98.2 F 01/03/25 12:51 Pulse Rate 84 01/03/25 12:51 Respiratory Rate 18 01/03/25 12:51 Blood Pressure 126/86 H 01/03/25 12:51 Pulse Oximetry (%) 98 01/03/25 12:51 Oxygen Delivery Method Room Air 01/03/25 12:51 Discharge Plan Plan Patient Disposition: HOME (Self Care) Discharge Disposition comment: Stable Prescriptions/Referrals Prescriptions/Med Rec: No Action valproic acid (as sodium salt) [valproic acid] 250 MG/5 ML solution 3 tsp PO TID Qty: 0 montelukast [Singulair] 10 MG tablet 10 mg PO QDAY Qty: 0 albuterol sulfate 2.5 MG/3 ML solution for nebulization 2.5 mg HHN Q4HR PRN (Reason: SHORTNESS OF BREATH OR WHEEZE) Qty: 0 budesonide [Pulmicort] 0.5 MG/2 ML suspension for nebulization 0.5 mg HHN Q12HR Qty: 0 levetiracetam [Keppra] 500 MG tablet 1,500 mg PO BID Qty: 0 Vimpat 100 MG tablet 150 mg PO BID Qty: 0 promethazine 25 mg tablet 25 mg Feeding Tube Q6H PRN (Reason: nausea and vomiting) Qty: 10 0RF ondansetron HCl [Zofran] 4 mg tablet 4 mg Feeding Tube QID PRN (Reason: nausea and vomiting) Qty: 14 0RF bacitracin 500 unit/gram ointment 1 applic topical BID Qty: 30 4RF doxycycline hyclate 100 mg capsule 100 mg PO BID Qty: 10 0RF lactulose 10 gram/15 mL Solution 20 g PO BID Problem List Clinical Impression: Malfunction of gastrostomy tube Patient/Caregiver Discharge Instructions Discharge Activity: activity as tolerated Education Materials: ED Feeding Tube Replacement Additional Instructions: Thank you for the opportunity for serving you today. You are stable for discharged . You are advised to: Follow-up with your PCP in 1 to 2 days Return to ED for worsening of symptoms Print Language: Syriac Stand Alone Forms: Leandra Award Info., Patient Portal Info Letter PA/PAINTER AND PAPERHANGER APPRENTICE Supervising Physician GISEL/PAINTER AND PAPERHANGER APPRENTICE Supervising Physician: MD Warner MDM Narrative MDM hospital course (for use when minimal MDM required): 34-year-old female patient was brought in by family for evaluation regarding issues with G-tube. According to the family the G-tube is leaking for the last few days. It was last changed 3 months ago. Patient is NPO. Patient has significant history of mental retardation, seizure disorder, nonverbal, and nonambulatory. No other complaints noted. G-tube was replaced by me without any difficulty, patient tolerated the procedure well. X-ray of the abdomen with Gastrografin showed G-tube in right position with no leaking or extravasation of the dye. Okay to use the G-tube Patient G-tube is okay to use
== END 2025-01-03 14:18 | disposition home or self-care (01) ==
PROVIDERS: Emergency Provider Family Medicine; PCP Obstetrics & Gynecology
DX: K94.23 Gastrostomy malfunction (principal); Y83.2 Surgical operation with anastomosis, bypass or graft as the cause of abnormal reaction of the patient, or of later complication, without mention of misadventure at the time of the procedure
CPT/HCPCS: 74018; 99282